=== PATIENT | female | born 1940 | race African-American/Black ===

== ENCOUNTER 2025-01-13 23:32 | Inpatient (IN) | payer MEDICARE, OTHER ==
[~2025-01-13] VITALS: Ht 165.1 cm; Wt 65.8 kg
[2025-01-14] MEDS: IV NORMAL SALINE 500 ML BAG IV ONE (00:15)
[2025-01-14] MEDS ORDERED: LORAZEPAM 2 MG/1 ML VIAL ONE (00:22)
[2025-01-14] MEDS ORDERED: HALOPERIDOL LACTATE 5 MG/1 ML VIAL ONE (00:22)
[2025-01-14 00:23] LABS: PLATELET COUNT (AUTO) 121 K/uL (179-408); RED BLOOD CELL COUNT(AUTO) 3.77 MIL/uL (3.63-4.92); RED CELL DISTRIBUTION WIDTH 14.3 % (12.3-17.7); WHITE BLOOD COUNT (AUTO) 4.0 K/uL (3.8-11.8)
[2025-01-14 00:29] LABS: CREATININE 0.9 mg/dL (0.6-1.3); SODIUM SERUM 141 mmol/L (136-145); UREA NITROGEN, BLOOD 25 mg/dL (7-18)
[2025-01-14 00:35] LABS: ASPARTATE AMINOTRANSFERASE 13 U/L (15-37); TOTAL PROTEIN, SERUM 7.3 g/dL (6.4-8.2)
[2025-01-14] MEDS: HALOPERIDOL LACTATE 5 MG/1 ML VIAL IM ONE (00:36)
[2025-01-14] MEDS: LORAZEPAM 2 MG/1 ML VIAL IM ONE (00:36)
[2025-01-14] MEDS ORDERED: LEVO25TA9 PO (00:48)
[2025-01-14] MEDS ORDERED: MULT-213 PO (00:48)
[2025-01-14] MEDS ORDERED: MAGN400O6 PO (00:48)
[2025-01-14] MEDS ORDERED: ESCI-9 PO (00:48)
[2025-01-14] MEDS ORDERED: NA P133E RC (00:48)
[2025-01-14] MEDS ORDERED: ACET-3117 PO (00:48)
[2025-01-14] MEDS ORDERED: CARV6.252 PO (00:48)
[2025-01-14] MEDS ORDERED: ASPI81TA31 PO (00:48)
[2025-01-14] MEDS ORDERED: DOCU250C14 PO (00:48)
[2025-01-14] MEDS ORDERED: DIPH25CA83 PO (00:48)
[2025-01-14] MEDS ORDERED: ROSU20TA2 PO (00:48)
[2025-01-14] MEDS ORDERED: CHOL400C5 PO (00:48)
[2025-01-14] MEDS ORDERED: DEXT15LI PO (00:48)
[2025-01-14] MEDS ORDERED: MEMA10TA PO (00:48)
[2025-01-14] MEDS ORDERED: OLAN5TAB70 PO (00:48)
[2025-01-14] MEDS ORDERED: MAG30ORA14 PO (00:48)
[2025-01-14] MEDS ORDERED: BISA10SU11 RC (00:48)
[2025-01-14] MEDS ORDERED: diphenhydrAMINE 50 MG/1 ML VIAL ONE (00:49)
[2025-01-14] MEDS: diphenhydrAMINE 50 MG/1 ML VIAL IV ONE (00:57)
[2025-01-14] MEDS ORDERED: ONDANSETRON 4 MG/2 ML VIAL IV PRN (04:15)
[2025-01-14] MEDS ORDERED: REMEDY ESSENTIAL ZINC PASTE 113 GM TP PRN (04:15)
[2025-01-14] MEDS ORDERED: ACETAMINOPHEN 325 MG TABLET PO PRN (04:15)
[2025-01-14 06:45] VITALS: BP 138/64
[2025-01-14 11:25] VITALS: BP 161/55; TEMP 98.6; O2SAT 95
[2025-01-14] MEDS: IV NS 1000 ML 1,000 ML IV PRN (12:22)
[2025-01-14 15:01] VITALS: BP 171/68; TEMP 98.6; O2SAT 95
[2025-01-14 19:30] VITALS: BP 141/58; TEMP 99.2; O2SAT 95
[2025-01-14] MEDS: TEMAZEPAM 15 MG CAPSULE PO ONE (23:21)
[2025-01-14 23:35] VITALS: BP 110/53; TEMP 99.2; O2SAT 97
[2025-01-15 01:15] LABS: *BILIRUBIN,URIN NEGATIVE (NEGATIVE); *BLOOD, URINE 2+ (NEGATIVE); *CLARITY,URINE TURBID (CLEAR); *COLOR,URINE YELLOW (YELLOW); *KETONES,URINE TRACE (NEGATIVE); *PROTEIN,URINE 1+ (NEGATIVE); *UROBILINOGEN,URINE 1.0 E.U./dl (NORMAL); LEUKOCYTE ESTERASE ,URINE NEGATIVE (NEGATIVE); NITRITE, URINE NEGATIVE (NEGATIVE); UGLUCOSE NEGATIVE (NEGATIVE)
[2025-01-15 01:23] LABS: SQUAMOUS EPITHELIAL CELL,UR FEW /HPF (NONE SEEN); URINE AMORPHOUS URATE MANY /HPF
[2025-01-15 05:17] VITALS: BP 152/54; TEMP 99; O2SAT 100
[2025-01-15 07:37] LABS: PLATELET COUNT (AUTO) 103 K/uL (179-408); RED BLOOD CELL COUNT(AUTO) 3.76 MIL/uL (3.63-4.92); RED CELL DISTRIBUTION WIDTH 14.1 % (12.3-17.7); WHITE BLOOD COUNT (AUTO) 5.2 K/uL (3.8-11.8)
[2025-01-15 08:02] LABS: CREATININE 0.6 mg/dL (0.6-1.3); SODIUM SERUM 141 mmol/L (136-145); UREA NITROGEN, BLOOD 19 mg/dL (7-18)
[2025-01-15 08:09] VITALS: BP 139/53; TEMP 98.3; O2SAT 95
[2025-01-15] MEDS: MAGNESIUM OXIDE 400 MG TABLET PO ONE (12:15)
[2025-01-15] MEDS ORDERED: MEMANTINE HCL 10 MG TABLET PO SCH (13:00)
[2025-01-15] MEDS: DOCUSATE SODIUM 250 MG CAPSULE PO SCH (14:25)
[2025-01-15] MEDS: ESCITALOPRAM OXALATE 10 MG TABLET PO SCH (14:25)
[2025-01-15] MEDS: ASPIRIN 81 MG TAB.CHEW PO SCH (14:25)
[2025-01-15 15:33] VITALS: BP 134/56; TEMP 98; O2SAT 95
[2025-01-15] MEDS: CARVEDILOL 6.25 MG TABLET PO SCH (17:19)
[2025-01-15] MEDS: MEMANTINE HCL 5 MG TABLET PO SCH (17:19)
[2025-01-15 19:35] VITALS: BP 128/43; TEMP 97.8; O2SAT 95
[2025-01-15] MEDS: CLOTRIMAZOLE 1% CREAM 30 GM TUBE TOP SCH (20:20)
[2025-01-15] MEDS: ATORVASTATIN 40 MG TABLET PO SCH (21:00)
[2025-01-15] MEDS: OLANZAPINE 5 MG TABLET PO SCH (21:05)
[2025-01-16 05:35] VITALS: BP 169/66; TEMP 98.2; O2SAT 94
[2025-01-16] MEDS: LEVOTHYROXINE SODIUM 25 MCG TABLET PO SCH (07:00)
[2025-01-16 07:19] LABS: CREATININE 0.5 mg/dL (0.6-1.3); SODIUM SERUM 145 mmol/L (136-145); UREA NITROGEN, BLOOD 16 mg/dL (7-18)
[2025-01-16] MEDS: diphenhydrAMINE 50 MG/1 ML VIAL IV PRN (11:02)
[2025-01-16 12:00] VITALS: BP 133/51; TEMP 98.2; O2SAT 96
[2025-01-16 16:05] VITALS: BP 142/49; TEMP 98.4; O2SAT 92
[2025-01-16] MEDS: TRIAMCINOLONE ACET 0.1% OINT 15 GM TUBE TOP SCH (16:59)
[2025-01-16 19:15] VITALS: BP 152/85; TEMP 98.8; O2SAT 95
[2025-01-17 05:33] VITALS: BP 151/56; TEMP 97.9; O2SAT 99
[2025-01-17 11:57] VITALS: BP 140/43; TEMP 97.6; O2SAT 99
[2025-01-17] MEDS: AMLODIPINE 10 MG TABLET PO SCH (12:19)
[2025-01-17] MEDS: MAGNESIUM HYDROXIDE 30 ML LIQUID UDC PO PRN (12:20)
[2025-01-17 16:00] VITALS: BP 137/54; TEMP 97.6; O2SAT 97
[2025-01-17 18:01] VITALS: BP 143/58
[2025-01-17 19:05] VITALS: BP 126/63; TEMP 98.9; TEMP 99.1; O2SAT 96
[2025-01-18 05:42] VITALS: BP 148/52; TEMP 97.6; O2SAT 97
[2025-01-18 11:00] VITALS: BP 115/58; TEMP 97.5; O2SAT 96
[2025-01-18] MEDS ORDERED: AMLO10TA59 PO (14:04)
[2025-01-18] MEDS ORDERED: LEVO25TA9 PO (14:04)
[2025-01-18] MEDS ORDERED: MEMA5TAB42 PO (14:04)
[2025-01-18] MEDS ORDERED: ASPI81TA31 PO (14:04)
[2025-01-18] MEDS ORDERED: ESCI-9 PO (14:04)
[2025-01-18] MEDS ORDERED: CLOT30CR24 TOP (14:04)
[2025-01-18] MEDS ORDERED: ACET325T53 PO (14:04)
[2025-01-18] MEDS ORDERED: ATOR40TA PO (14:04)
[2025-01-18] MEDS ORDERED: TRIA15OI11 TOP (14:04)
[2025-01-18] MEDS ORDERED: OLAN5TAB70 PO (14:04)
[2025-01-18] MEDS ORDERED: DOCU250C14 PO (14:04)
[2025-01-18] MEDS ORDERED: CARV6.252 PO (14:04)
== END 2025-01-18 14:40 | DRG 314 ==
LOC: ER 23:41 → TELE3 01-14 07:59 → MEDSURG3 01-15 22:10
PROVIDERS: ADMIT Nurse Practitioner Acute Care; ATTEND Internal Medicine
DX: I95.9 Hypotension, unspecified (principal); G93.41 Metabolic encephalopathy; F33.3 Major depressive disorder, recurrent, severe with psychotic symptoms; F03.911 Unspecified dementia, unspecified severity, with agitation; F03.93 Unspecified dementia, unspecified severity, with mood disturbance; F03.90 Unspecified dementia, unspecified severity, without behavioral disturbance, psychotic disturbance, mood disturbance, and anxiety; E03.9 Hypothyroidism, unspecified; G90.89 Other disorders of autonomic nervous system; I65.21 Occlusion and stenosis of right carotid artery; M41.9 Scoliosis, unspecified; I11.0 Hypertensive heart disease with heart failure; Z87.440 Personal history of urinary (tract) infections; Z85.42 Personal history of malignant neoplasm of other parts of uterus; Z79.890 Hormone replacement therapy; Z79.899 Other long term (current) drug therapy; Z79.82 Long term (current) use of aspirin; E78.5 Hyperlipidemia, unspecified; I50.9 Heart failure, unspecified; Z53.21 Procedure and treatment not carried out due to patient leaving prior to being seen by health care provider; R79.89 Other specified abnormal findings of blood chemistry; Z78.1 Physical restraint status; Z88.0 Allergy status to penicillin
CPT/HCPCS: 36415; 70450; 71045; 83735; 84100; 84443; 84484; 85025; 87086; 93307; 93880; 97535-GO-CO; G0378; J1200; J1630; J2060; J7040; J7042